=== PATIENT | male | born 2000 | race Caucasian/White ===

== ENCOUNTER 2023-09-21 21:37 | Emergency (ER) | payer SELFPAY ==
[~2023-09-21] VITALS: Ht 182.9 cm; Wt 59.0 kg
[2023-09-21 21:43] VITALS: BP 115/71; PULSE 72; RESP 18; TEMP 98.8; O2SAT 98
[2023-09-21] MEDS ORDERED: cefTRIAXone 1,000 MG VIAL ONE (22:22)
[2023-09-21] MEDS ORDERED: LIDOCAINE MPF 1% 5 ML ONE (22:26)
[2023-09-21] MEDS: cefTRIAXone 1,000 MG in LIDOCAINE MPF 1% 2.1 ML IM ONE (22:37)
[2023-09-21] MEDS ORDERED: AMOX1TAB8 PO (22:58)
[2023-09-21 23:00] VITALS: BP 115/71; PULSE 72; RESP 18; TEMP 98.8; O2SAT 98
== END 2023-09-21 23:00 | disposition home or self-care (01) ==
LOC: MED 21:37
DX: S50.811A Abrasion of right forearm, initial encounter (principal); Z79.899 Other long term (current) drug therapy; W55.03XA Scratched by cat, initial encounter; Y93.89 Activity, other specified; Y92.89 Other specified places as the place of occurrence of the external cause; Y99.8 Other external cause status
CPT/HCPCS: 96372; 99283; J0696; J2001